=== PATIENT | male | born 1975 | race Caucasian/White ===

== ENCOUNTER → 2016-05-05 | Outpatient (CLI) | payer OTHER ==
[~2016-05-05] MED LIST: ALLEGRA30 MG PO; CEPHALEXIN500 M1 PO; CLEOCIN HCL300 MG PO; CLINDAMYCIN PO; FLOMAX0.4 MG PO; LISINOPRIL20 MG PO; NORCO 325 MG-51 TAB PO; PERCOCET 325 MG1 TA2 PO; PHENERGAN 25 TA25 MG PO; PRILOSEC 20MG20 MG PO
== END ==
LOC: BHSO 08:16
DX: F90.0 Attention-deficit hyperactivity disorder, predominantly inattentive type (principal)

== ENCOUNTER → 2016-10-25 | Outpatient (CLI) | payer OTHER | LOC: BHSO 09:26 | DX: F90.0 Attention-deficit hyperactivity disorder, predominantly inattentive type (principal) ==

== ENCOUNTER → 2017-05-03 | Outpatient (CLI) | payer OTHER, BC | LOC: BHSO 08:56 | DX: F90.0 Attention-deficit hyperactivity disorder, predominantly inattentive type (principal) | CPT/HCPCS: G0463 ==

== ENCOUNTER → 2017-11-08 | Outpatient (CLI) | payer OTHER, BC | LOC: BHSO 08:59 | DX: F90.0 Attention-deficit hyperactivity disorder, predominantly inattentive type (principal) | CPT/HCPCS: G0463 ==

== ENCOUNTER → 2018-05-02 | Outpatient (CLI) | payer OTHER, BC | LOC: BHSO 08:14 | DX: F90.0 Attention-deficit hyperactivity disorder, predominantly inattentive type (principal) | CPT/HCPCS: G0463 ==

== ENCOUNTER → 2018-10-31 | Outpatient (CLI) | payer OTHER, BC | LOC: BHSO 08:15 | DX: F90.0 Attention-deficit hyperactivity disorder, predominantly inattentive type (principal) | CPT/HCPCS: G0463 ==

== ENCOUNTER → 2019-05-01 | Outpatient (CLI) | payer OTHER, BC | LOC: BHSO 08:00 | DX: F90.0 Attention-deficit hyperactivity disorder, predominantly inattentive type (principal) | CPT/HCPCS: G0463 ==

== ENCOUNTER → 2019-10-22 | Outpatient (CLI) | payer OTHER, BC | LOC: BHSO 08:01 | DX: F90.0 Attention-deficit hyperactivity disorder, predominantly inattentive type (principal) | CPT/HCPCS: G0463 ==